=== PATIENT | female | born 1960 | race Caucasian/White ===

== ENCOUNTER 2016-07-16 05:39 | Inpatient (IN) | payer OTHER ==
[~2016-07-16 05:39] MED LIST: AMBIEN10 M1 PO; ANTIBIOTIC PO; ASPIRIN325 M3 PO; CIPRO500 M2 PO; ESCITALOPRAM OX10 M1 PO; FARXIGA10 M1 PO; FARXIGA5 M1 PO; GLUCOPHAGE500 M3 PO; INVOKANA300 MG PO; KEFLEX500 M4 PO; MACROBID 100 M100 M1 PO; MEDROL DOSE PACK PO; MELATONIN3 MG PO; METFORMIN HCL500 M3 PO; NORCO 5-325 TA1 EACH PO; OXYCODONE HCL5 M1 PO; PREDNISONE1 M1; ROCEPHIN IV; SIMCOR; SIMCOR 500-21 BOTTLE PO; TOPAMAX50 MG PO; VERAPAMIL ER180 M2 PO; VICODIN 5/500 T1 TAB PO; VITAMIN C500 M3 PO; ZOMIG5 M1 PO
[2016-07-16 06:13] LABS: BASO % 0.1 % (0-2); HCT-HEMATOCRIT 36.2 % (34.0-49.0); HGB-HEMOGLOBIN 11.9 gm/dl (12.0-15.5); LYMPH % 12.9 % (20-45); LYMPH ABSOLUTE COUNT 1.6 tho/cmm (0.8-4.5); MCH (MEAN CORPUSCULAR HGB) 29.1 pg (28.0-32.0); MCHC MEAN CORPUSCULAR HGB CONC 32.9 % (32.0-36.0); MCV (MEAN CELL VOLUME) 88.5 fl (82.0-96.0); MEAN PLATELET VOLUME 9.2 cmc (9.4-12.4); MONOCYTE ABSOLUTE COUNT 1.3 tho/cmm (0.0-1.2); NEUTROPHIL ABSOLUTE COUNT 9.7 tho/cmm (1.6-8.0); NEUTROPHIL-AUTOMATED 9.7 tho/cmm (1.6-8.0); PLATELET COUNT 246 tho/cmm (150-450); RED BLOOD COUNT 4.09 mil/cmm (4.00-5.20); RED CELL DISTRIBUTION WIDTH 12.9 % (12.4-16.4); WHITE BLOOD COUNT 12.6 tho/cmm (4.0-10.0)
[2016-07-16 06:31] LABS: ANION GAP 12 mmol/L (0-20); BLOOD UREA NITROGEN 16 mg/dl (6-24); CALCIUM 9.1 mg/dl (8.5-10.5); CARBON DIOXIDE-VENOUS 26 mmol/L (22-32); CHLORIDE 108 mmol/l (96-110); CREATININE 0.82 mg/dl (0.50-1.10); GLUCOSE 137 mg/dL (70-110); POTASSIUM 3.7 mmol/L (3.7-5.1); SODIUM 142 mmol/L (135-145); eGFR VALUE FOR BLACK >90 mL/Min
[2016-07-16] MEDS ORDERED: NIASPAN500 M1 PO (08:14)
[2016-07-16] MEDS ORDERED: ZOCOR20 M1 PO (08:14)
[2016-07-16 09:45] LABS: AMYLASE 69 U/L (20-90); LIPASE 377 U/L (73-393)
[2016-07-16 17:32] LABS: ALB/GLOB RATIO 1.1 (0.8-2.0); ALBUMIN 3.6 g/dl (3.5-5.0); ALKALINE PHOSPHATASE 80 U/L (33-138); ALT/SGPT 68 U/L (12-78); AST/SGOT 65 U/L (10-40); BILIRUBIN,DIRECT <0.1 mg/dl (0.0-0.3); BILIRUBIN,INDIRECT 0.2 mg/dL (0.0-1.0); BILIRUBIN,TOTAL 0.3 mg/dl (0-1.5)
[2016-07-16 17:39] LABS: PROCALCITONIN <0.05 ng/ml (0.05-0.09)
[2016-07-16 18:55] LABS: URINE BILIRUBIN NEGATIVE (NEG); URINE BLOOD LARGE (NEG); URINE GLUCOSE (UA) NEGATIVE (NEG); URINE KETONE SMALL (NEG); URINE LEUKOCYTE ESTERASE POSITIVE (NEG); URINE NITRITE POSITIVE (NEG); URINE PROTEIN MODERATE (NEG)
[2016-07-16 18:59] LABS: URINE APPEARANCE HAZY; URINE COLOR YELLOW
[2016-07-16 19:00] LABS: URINE BACTERIA 4+
[2016-07-16 19:01] LABS: URINE EPITHELIAL CELLS 0-1 /[HPF] (0-10); URINE WBC 40-60 /[HPF] (0-5)
[2016-07-17 05:55] LABS: BASO % 0.1 % (0-2); HCT-HEMATOCRIT 33.3 % (34.0-49.0); HGB-HEMOGLOBIN 10.9 gm/dl (12.0-15.5); IMMATURE GRANULOCYTES ABSOLUTE 0.03 tho/cmm (0-0.03); IMMATURE GRANULOCYTES PERCENT 0.2 % (0-0.3); LYMPH % 10.2 % (20-45); LYMPH ABSOLUTE COUNT 1.3 tho/cmm (0.8-4.5); MCH (MEAN CORPUSCULAR HGB) 28.8 pg (28.0-32.0); MCHC MEAN CORPUSCULAR HGB CONC 32.7 % (32.0-36.0); MCV (MEAN CELL VOLUME) 88.1 fl (82.0-96.0); MEAN PLATELET VOLUME 9.2 cmc (9.4-12.4); MONO % 8.9 % (0-12); MONOCYTE ABSOLUTE COUNT 1.2 tho/cmm (0.0-1.2); NEUTROPHIL ABSOLUTE COUNT 10.5 tho/cmm (1.6-8.0); NEUTROPHIL-AUTOMATED 10.5 tho/cmm (1.6-8.0); NEUTROPHILS % 80.6 % (40-80); PLATELET COUNT 191 tho/cmm (150-450); RED BLOOD COUNT 3.78 mil/cmm (4.00-5.20); RED CELL DISTRIBUTION WIDTH 13.4 % (12.4-16.4)
[2016-07-17 06:13] LABS: ANION GAP 12 mmol/L (0-20); BLOOD UREA NITROGEN 12 mg/dl (6-24); CALCIUM 8.1 mg/dl (8.5-10.5); CARBON DIOXIDE-VENOUS 24 mmol/L (22-32); CHLORIDE 110 mmol/l (96-110); CHOLESTEROL 89 mg/dl (120-200); CREATININE 0.66 mg/dl (0.50-1.10); GLUCOSE 127 mg/dL (70-110); HDL CHOLESTEROL 51 mg/dl (40-60); LDL CHOLESTEROL 16 mg/dl (0-99); POTASSIUM 3.8 mmol/L (3.7-5.1); SODIUM 142 mmol/L (135-145); TRIGLYCERIDES 111 mg/dl (<149); VLDL 22 mg/dl (0-30); eGFR VALUE FOR BLACK >90 mL/Min
[2016-07-18 05:36] LABS: BASO % 0.1 % (0-2); HCT-HEMATOCRIT 32.9 % (34.0-49.0); HGB-HEMOGLOBIN 10.6 gm/dl (12.0-15.5); IMMATURE GRANULOCYTES ABSOLUTE 0.02 tho/cmm (0-0.03); IMMATURE GRANULOCYTES PERCENT 0.2 % (0-0.3); LYMPH % 13.5 % (20-45); LYMPH ABSOLUTE COUNT 1.7 tho/cmm (0.8-4.5); MCH (MEAN CORPUSCULAR HGB) 28.5 pg (28.0-32.0); MCHC MEAN CORPUSCULAR HGB CONC 32.2 % (32.0-36.0); MCV (MEAN CELL VOLUME) 88.4 fl (82.0-96.0); MEAN PLATELET VOLUME 9.3 cmc (9.4-12.4); MONO % 10.2 % (0-12); MONOCYTE ABSOLUTE COUNT 1.3 tho/cmm (0.0-1.2); NEUTROPHIL ABSOLUTE COUNT 9.5 tho/cmm (1.6-8.0); NEUTROPHIL-AUTOMATED 9.5 tho/cmm (1.6-8.0); PLATELET COUNT 193 tho/cmm (150-450); RED BLOOD COUNT 3.72 mil/cmm (4.00-5.20); RED CELL DISTRIBUTION WIDTH 13.5 % (12.4-16.4); WHITE BLOOD COUNT 12.5 tho/cmm (4.0-10.0)
[2016-07-18 05:47] LABS: ANION GAP 14 mmol/L (0-20); BLOOD UREA NITROGEN 11 mg/dl (6-24); CALCIUM 8.1 mg/dl (8.5-10.5); CARBON DIOXIDE-VENOUS 21 mmol/L (22-32); CHLORIDE 110 mmol/l (96-110); CREATININE 0.71 mg/dl (0.50-1.10); GLUCOSE 185 mg/dL (70-110); POTASSIUM 3.9 mmol/L (3.7-5.1); SODIUM 141 mmol/L (135-145); eGFR VALUE FOR BLACK >90 mL/Min
[2016-07-18] MEDS ORDERED: AUGMENTIN 875-1 EAC2 PO (12:02)
[2016-07-18] MEDS ORDERED: KEFLEX250 M2 PO (12:03)
[2016-08-18] MEDS ORDERED: [UNRECOGNIZED DRUG - OTHER] (16:50)
[2016-08-18] MEDS ORDERED: [UNRECOGNIZED DRUG - CODE] (16:51)
[2016-08-18] MEDS ORDERED: MUCINEX COLD-F177 M1 PO (16:52)
== END 2016-07-18 13:10 | DRG 392 ==
LOC: EDMED 05:39 → EMR2 09:15 → CAR1 10:05
PROVIDERS: Emergency Medicine; Hospitalist; Internal Medicine Cardiovascular Disease; ADMIT Internal Medicine Interventional Cardiology
DX: R10.9 Unspecified abdominal pain (principal); I10 Essential (primary) hypertension; R07.9 Chest pain, unspecified; E78.5 Hyperlipidemia, unspecified; Z90.49 Acquired absence of other specified parts of digestive tract; E11.9 Type 2 diabetes mellitus without complications
CPT/HCPCS: A9500; C9113; J0690; J0696; J1335; J1956; J2270; J2405; J3480; Q9967

== ENCOUNTER 2016-08-22 05:34 | Day surgery (SDC) | payer OTHER ==
[~2016-08-22 05:34] MED LIST changes: +AUGMENTIN 875-1 EAC2 PO; +KEFLEX250 M2 PO; +MUCINEX COLD-F177 M1 PO; +NIASPAN500 M1 PO; +ZOCOR20 M1 PO; +[UNRECOGNIZED DRUG - CODE]; +[UNRECOGNIZED DRUG - OTHER]
[2016-08-22 06:23] LABS: URINE BILIRUBIN SMALL (NEG); URINE BLOOD LARGE (NEG); URINE GLUCOSE (UA) NEGATIVE (NEG); URINE KETONE SMALL (NEG); URINE LEUKOCYTE ESTERASE POSITIVE (NEG); URINE NITRITE POSITIVE (NEG); URINE PROTEIN MODERATE (NEG); URINE SPECIFIC GRAVITY 1.025 (1.003-1.030)
[2016-08-22 06:28] LABS: URINE APPEARANCE CLOUDY; URINE COLOR RED
[2016-08-22 06:30] LABS: URINE RBC FULL FIELD /[HPF] (0-5)
[2016-08-22 06:31] LABS: URINE EPITHELIAL CELLS 0-2 /[HPF] (0-10)
[2016-08-22 06:47] LABS: INR 0.9 INR (0.9-1.1); PROTHROMBIN TIME 10.9 SECONDS (9.0-13.6)
[2016-08-22 06:56] LABS: ANION GAP 13 mmol/L (0-20); BLOOD UREA NITROGEN 18 mg/dl (6-24); CALCIUM 8.8 mg/dl (8.5-10.5); CARBON DIOXIDE-VENOUS 26 mmol/L (22-32); CHLORIDE 104 mmol/l (96-110); CREATININE 0.81 mg/dl (0.50-1.10); GLUCOSE 124 mg/dL (70-110); POTASSIUM 3.9 mmol/L (3.7-5.1); SODIUM 139 mmol/L (135-145); eGFR VALUE FOR BLACK >90 mL/Min
== END 2016-08-22 10:50 ==
LOC: SRG 05:34 → SHSB 05:38 → ORE 07:30 → PACU 08:45 → SHSB 09:30
PROVIDERS: Urology
PROC: 0TF4XZZ Fragmentation in Left Kidney Pelvis, External Approach (ICD-10-PCS; principal; 2016-08-22)
DX: N20.0 Calculus of kidney (principal); I25.10 Atherosclerotic heart disease of native coronary artery without angina pectoris; I10 Essential (primary) hypertension; E11.9 Type 2 diabetes mellitus without complications; Z79.899 Other long term (current) drug therapy; Z98.890 Other specified postprocedural states
CPT/HCPCS: J1956; J7030